=== PATIENT | male | born 1975 | race Caucasian/White ===

== ENCOUNTER → 2016-12-05 | Outpatient (CLI) | payer BC ==
[~2016-12-05] MED LIST: FLAX1CAP11 PO; METR-163 PO; VITAMIN B12 PO; VITAMIN D PO
[2016-12-05 13:31] LABS: ESTIMATED AVERAGE GLUCOSE 140 mg/dl; HA1C FLAG Normal (Normal)
[2016-12-05 13:35] LABS: BLOOD UREA NITROGEN 11 mg/dl (7-18); BUN/CREATININE RATIO 13.7 (10-20); CALCIUM 9.4 mg/dl (8.5-10.1); CARBON DIOXIDE 25 mmol/L (21-32); CHLORIDE 104 mmol/L (98-107); CREATININE 0.81 mg/dl (0.60-1.40); GLUCOSE 131 mg/dl (70-99); POTASSIUM 4.1 mmol/L (3.5-5.1); SODIUM 139 mmol/L (136-145); TRIGLYCERIDES 179 mg/dl (0-150)
== END | disposition home or self-care (01) ==
LOC: C.LABBC 10:49
PROVIDERS: ATTEND Nurse Practitioner Family
DX: E88.9 Metabolic disorder, unspecified (principal); E55.9 Vitamin D deficiency, unspecified

== ENCOUNTER → 2017-06-02 | Outpatient (CLI) | payer BC ==
[2017-06-02 10:44] LABS: BASO % 0.2 %; BASO ABS # 0.02 K/uL (0-0.2); COMPLETE YES; EOS % 2.5 %; HEMATOCRIT 40.9 % (42-52); IG% 0.4 %; LYMPH ABS # 2.78 K/uL (1.2-3.4); MEAN CELL VOLUME 93.2 fL (80-100); MEAN CORPUSCULAR HEMOGLOBIN 31.2 pg (25-34); MEAN CORPUSCULAR HGB CONC 33.5 g/dl (32-36); MEAN PLATELET VOLUME 10.8 fL (7.4-10.4); MONO % 7.9 %; PLATELET COUNT 249 K/uL (130-400); RED BLOOD COUNT 4.39 M/uL (4.7-6.1); WHITE BLOOD COUNT 9.26 K/uL (4.8-10.8)
[2017-06-02 11:17] LABS: ALB/GLOB RATIO 0.6 (0.9-2); ALKALINE PHOSPHATASE 92 U/L (45-117); ALT/SGPT 78 U/L (12-78); AST/SGOT 63 U/L (15-37); BLOOD UREA NITROGEN 13 mg/dl (7-18); BUN/CREATININE RATIO 15.2 (10-20); CARBON DIOXIDE 27 mmol/L (21-32); CHLORIDE 101 mmol/L (98-107); CHOLESTEROL 148 mg/dl (0-200); CHOLESTEROL/HDL RATIO 4.6; CREATININE 0.88 mg/dl (0.60-1.40); GLUCOSE 160 mg/dl (70-99); HDL CHOLESTEROL 32 mg/dl; LDL CHOLESTEROL CALCULATED 73 mg/dl; POTASSIUM 4.3 mmol/L (3.5-5.1); SODIUM 135 mmol/L (136-145); TRIGLYCERIDES 213 mg/dl (0-150); VERY LOW DENSITY LIPOPROT CALC 43 mg/dl
[2017-06-02 11:29] LABS: ESTIMATED AVERAGE GLUCOSE 148 mg/dl; HA1C FLAG Normal (Normal)
[2017-06-02 11:33] LABS: RATIO 12.6 mcg/mg (0-30.0)
== END | disposition home or self-care (01) ==
LOC: C.LABBC 07:53
PROVIDERS: ATTEND Family Medicine
DX: E88.9 Metabolic disorder, unspecified (principal); E11.9 Type 2 diabetes mellitus without complications; E55.9 Vitamin D deficiency, unspecified; Z85.71 Personal history of Hodgkin lymphoma

== ENCOUNTER → 2017-11-26 | Outpatient (CLI) | payer OTHER ==
--- NOTE | 2017-11-26 09:38 | DIAGNOSTIC IMAGING REPORT ---
CHEST 2 VIEWS ROUTINE CLINICAL HISTORY: R05 dyspnea. Cough. COMPARISON STUDY: No previous studies for comparison. FINDINGS: The bones soft tissues and hemidiaphragms are normal. The cardiomediastinal silhouette is normal. The lungs are clear. The pulmonary vasculature is normal. IMPRESSION: Negative chest. The above report was generated using voice recognition software. It may contain grammatical, syntax or spelling errors. Electronically signed by: Kana Urena M.D. 11/26/2017 9:36 AM Dictated Date/Time: 11/26/2017 9:36 AM
== END | disposition home or self-care (01) ==
LOC: C.RADBC 09:16
PROVIDERS: ATTEND Nurse Practitioner Family
DX: R05 Cough (principal)

== ENCOUNTER 2021-06-02 19:09 | Observation (INO) ==
[2021-06-02] MEDS ORDERED: SODIUM CHLORIDE 0.9% 1000ML 500 ML IV ONE (19:40)
[2021-06-02] MEDS ORDERED: dilTIAZem HCl 5 MG/ML 5 ML VIAL IV STA ×2 (19:40→20:35)
--- NOTE | 2021-06-02 19:50 | Emergency Department Note ---
Impression & Plan Atrial fibrillation with rapid ventricular response, Heart palpitations, Abnormal chest x-ray, Hypomagnesemia ED Provider Note NAME: COLETTE QUIÑONES AGE: 46 SEX: M : 1975 ARRIVES VIA: Walk-In INFORMANT: Patient, ED PROVIDER(S): Sukhdev Crabtree DO CHIEF COMPLAINT: Palpitations HPI: The patient is a 46-year-old male who presented to the emergency department for an evaluation of palpitations. The patient noticed palpitations earlier today. He was just finishing eating when he started noticing his heart was racing and skipping beats. He has never had similar symptoms in the past. He notices symptoms were somewhat worsened with exertion. He denies having any lower extremity swelling. He denies having any chest pain. He denies having any difficulty breathing. He has noticed no weight gain or abdominal pain. He said no recent traveling. He has no fever. He has had no exposure to COVID-19. His mother has a history of atrial fibrillation and he is unsure if he has the same. He has never had a history of atrial fibrillation. He does have a history of high triglycerides as well as diabetes. He is noticed his blood sugars have been normal compared to baseline. He has been taking all his medications as prescribed. ROS: See above HPI for pertinent positives & negatives. A total of 10 systems reviewed and were otherwise negative. PAST MEDICAL HISTORY: See Below PAST SURGICAL HISTORY: See Below FAMILY HISTORY: See Below SOCIAL HISTORY: See Below HOME MEDICATIONS: See Below ALLERGIES: See Below VITALS: See Below PHYSICAL EXAMINATION: GENERAL: Patient is awake alert in no acute distress patient is resting comfortably and showing no signs of anxiety EYES: The conjunctivae are clear. The pupils are round and reactive. EARS, NOSE, MOUTH AND THROAT: The nose is without any evidence of any deformity. NECK: The neck is nontender and supple. RESPIRATORY: Normal respiratory effort is noted there is no evidence of wheezing rhonchi or rales CARDIOVASCULAR: Tachycardic and irregular heart sounds were noted to auscultation. There is no definite murmur. GASTROINTESTINAL: The abdomen is soft. Abdomen is nontender. PELVIS: The Pelvis is stable. No tenderness to palpation is noted. BACK: No midline tenderness or or step-off noted range of motion in flexion extension as well as rotation no signs of muscle spasm noted MUSCULOSKELETAL/EXTREMITIES: There is no evidence of gross deformity full range of motion is noted in the hips and shoulders. SKIN: Skin is warm and dry. Trace pedal edema was noted bilaterally. NEUROLOGIC: Patient is awake alert and oriented x3. MEDICAL DECISION MAKING: The patient is a 39-male who presented to the emergency department for an evaluation of palpitations. The patient was found to be in rapid atrial fibrillation. He was treated with IV fluids as well as IV Cardizem multiple ti mes. The patient was reevaluated multiple times. His condition slowly improved. The patient was found to have an abnormal chest x-ray which led to a CT of the chest. No definite signs of aortic pathology were noted. I [facility] the [facility] have agreed to evaluate the patient in the emergency department for further management and disposition. Anticoagulation was deferred to the admitting team. Triage Nursing notes reviewed. Prior medical records reviewed Vital Signs: reviewed and remarkable for tachycardia Differential diagnosis: Premature contractions, electrolyte abnormality, cardiac dysrhythmia, thyroid dysfunction, pulmonary embolism, infection, gastrointestinal, as well as other pathologies. ER treatment provided: See below Diagnostics interpreted by me: ECG: EKG was obtained in the emergency department. My interpretation is atrial fibrillation at [address] segment abnormalities were noted. There was no PVCs. This was compared to a tracing from October 252020. Atrial fibrillation has replaced normal sinus rhythm. Cardiac Monitoring: An order was placed for continuous cardiac monitoring. The monitor shows a rate of 86 bpm with atrial fibrillation rhythm. Laboratory studies: As stated above and show below. Imaging studies: See below Consultation(s): I discussed this case with Dr. Ernandez who [facility] He will evaluate the patient in the emergency department for further management and disposition. ED COURSE: Procedures: none PDMP:reviewed and no issues Critical Care: I have personally spent greater than 45 minutes of critical care time in the direct management of this patient. This includes bedside care, interpretation of diagnostic studies, and testing, discussion with consultants, patient, and family members, and other required patient management activities. This 45 minutes is in excess of all separately billable procedures. Past Med/Surg History Medical History BMI 40.0-44.9, adult COVID-19 Diabetes mellitus type 2 in obese History of Hodgkin's lymphoma Hyperlipidemia Metabolic disorder Morbid obesity Pneumonia due to COVID-19 virus Sarcoidosis Surgical History History of colonoscopy History of lymph node biopsy History of surgery gallbladder surgery History of umbilical hernia repair Family History Family/Other Myocardial infarction Father Cardiac disorder Sister Anxiety Diabetes Denies family history of Ovarian cancer Prostate cancer Breast cancer Colorectal cancer Social History Smoking Status: Current some day smoker Tobacco Type: Cigarettes Age Started Using Tobacco: 15; Age Quit Using Tobacco: 17; Years Smoked: 2; Cigarettes Per Day: 2; Second Hand Exposure: No; Hx Alcohol Use: Yes Alcohol type: beer Alcohol Intake Frequency: Monthly or Les s Hx Substance Use: No Preferred Language: Japanese Communication Ability: Effective Visual Impairment: No Limitations Hearing Ability: Normal marital status: Current Living Situation: Spouse current occupational status: employed current occupation: [employer] Feels Safe at Home: Yes Childhood Exposure to Second-Hand Smoke: Yes Dental Care, Regularly: Yes Physical Activity Frequency: 1-2 Times per Week Seatbelt Use: always Sunscreen Use: Yes Allergies Allergies Allergy/AdvReac Type Severity Reaction Status Date / Time cetirizine Allergy Unknown RASH Verified 06/02/21 20:16 Home Meds Home Medications Medication Instructions Recorded Confirmed omega-3 fatty acids 1,000 mg 1,000 mg PO QAM 03/13/19 06/02/21 capsule (Fish Oil Concentrate) cholecalciferol (vitamin D3) 125 5,000 units PO QAM #30 cap 04/28/19 06/02/21 mcg (5,000 unit) capsule cyanocobalamin (vitamin B-12) 1,000 mcg PO QAM tab 04/28/19 06/02/21 1,000 mcg tablet blood-glucose meter (Accu-Chek ea 04/22/21 04/22/21 Maral Plus Meter) dulaglutide 3 mg/0.5 mL 3 mg SQ Q7D ml 04/22/21 06/02/21 subcutaneous pen injector albuterol sulfate 90 mcg/actuation 1 - 2 puff INHALATION Q4H PRN 06/02/21 06/02/21 aerosol inhaler insulin aspart U-100 100 unit/mL 60 unit SQ DIRECTED 06/02/21 06/02/21 (3 mL) subcutaneous pen (Novolog Flexpen U-100 Insulin aspart) insulin degludec 100 unit/mL (3 40 unit SQ QAM 06/02/21 06/02/21 mL) subcutaneous pen (Tresiba FlexTouch U-100 insulin) rosuvastatin 10 mg tablet (Crestor) 10 mg PO QAM 06/02/21 06/02/21 Previous Rx's Medication Instructions Recorded Dexcom G6 Remote Inpatient Coder (blood-glucose #1 ea NS 10/03/20 meter,continuous) BD Ultra-Fine Tatyana Pen Needle 32 #200 ea NS 01/30/21 gauge x 5/32" (pen needle, diabetic) Dexcom G6 Sensor (blood-glucose #3 ea NS 03/05/21 sensor) Dexcom G6 Transmitter #1 ea NS 03/05/21 (blood-glucose transmitter) blood sugar diagnostic (Accu-Chek #100 ea 04/22/21 Maral Plus test strp) metformin 500 mg tablet 1,000 mg PO BID #360 tab 05/12/21 Results & Data (ED) Vital Signs Vital Signs - 24 hr 06/02/21 19:17 06/02/21 19:41 06/02/21 20:00 Temperature 36.9 C Temperature Source Temporal Artery Scan Pulse Rate 140 H 155 H 127 H Pulse Rate [Apical] Pulse Rate from SpO2 Sensor 108 H Respiratory Rate 19 17 18 Respiratory Effort / Characteristics Non-Labored Respiratory Depth Normal Respiratory Pattern Regular Blood Pressure 129/77 126/104 H 143/83 H Blood Pressure [Left Arm] Blood Pressure Mean 94 111 103 Blood Pressure Mean [Left Arm] Pulse Oximetry 98 95 Oxygen Delivery Method Room Air Sepsis Recent Fever Within 48 Hours No Sepsis New/Unexplained Change in Mental Status N/A Sepsis Action Taken by Nursing No Action Required 06/02/21 20:30 06/02/21 21:00 06/02/21 21:30 Temperature Temperature Source Pulse Rate 130 H 108 H 130 H Pulse Rate [Apical] Pulse Rate from SpO2 Sensor 128 H 89 120 H Respiratory Rate 19 19 16 Respiratory Effort / Characteristics Respiratory Depth Respiratory Pattern Blood Pressure 134/71 126/78 132/79 Blood Pressure [Left Arm] Blood Pressure Mean 92 94 96 Blood Pressure Mean [Left Arm] Pulse Oximetry 93 94 96 Oxygen Delivery Method Sepsis Recent Fever Within 48 Hours Sepsis New/Unexplained Change in Mental Status Sepsis Action Taken by Nursing 06/02/21 22:00 06/02/21 22:36 06/02/21 23:00 Temperature Temperature Source Pulse Rate 96 H 93 H Pulse Rate [Apical] 93 H Pulse Rate from SpO2 Sensor 96 H 95 H Respiratory Rate 17 14 Respiratory Effort / Characteristics Respiratory Depth Respiratory Pattern Blood Pressure 113/72 111/76 Blood Pressure [Left Arm] Blood Pressure Mean 85 87 Blood Pressure Mean [Left Arm] Pulse Oximetry 96 96 Oxygen Delivery Method Sepsis Recent Fever Within 48 Hours Sepsis New/Unexplained Change in Mental Status Sepsis Action Taken by Nursing 06/02/21 23:30 06/02/21 23:51 Temperature Temperature Source Pulse Rate 88 Pulse Rate [Apical] 86 Pulse Rate from SpO2 Sensor 88 Respiratory Rate 17 Respiratory Effort / Characteristics Respiratory Depth Respiratory Pattern Blood Pressure 116/71 Blood Pressure [Left Arm] 109/68 Blood Pressure Mean 86 Blood Pressure Mean [Left Arm] 81 Pulse Oximetry 95 96 Oxygen Delivery Method Room Air Sepsis Recent Fever Within 48 Hours Sepsis New/Unexplained Change in Mental Status Sepsis Action Taken by Half-Way Medications Current Medication List: was personally reviewed by me Laboratory Data Attestation: I reviewed the patient's lab results. Result diagrams: 06/02/21 19:34 06/02/21 19:34 Lab Results 06/02/21 06/02/21 06/02/21 Range/Units 19:34 19:34 19:34 WBC 8.66 (4.8-10.8) K/uL RBC 4.38 L (4.7-6.1) M/uL Hgb 13.0 L (14.0-18.0) g/dL Hct 38.2 L (42-52) % MCV 87.2 (80-100) fL MCH 29.7 (25-34) pg MCHC 34.0 (32-36) g/dL RDW Std Deviation 49.0 H (36.4-46.3) fL RDW Coeff of Chin 15.5 H (11.5-14.5) % Plt Count 204 (130-400) K/uL MPV 9.7 (7.4-10.4) fL Immature Gran % (Auto) 0.3 % Neut % (Auto) 64.6 % Lymph % (Auto) 23.4 % [place] % (Auto) 8.2 % Eos % (Auto) 3.2 % Baso % (Auto) 0.3 % Neut # (Auto) 5.58 (1.4-6.5) K/uL Lymph # (Auto) 2.03 (1.2-3.4) K/uL [place] # (Auto) 0.71 H (0.11-0.59) K/uL Eos # (Auto) 0.28 (0-0.5) K/uL Baso # (Auto) 0.03 (0-0.2) K/uL Immature Gran # (Auto) 0.03 H (0.00-0.02) K/uL PT 10.1 (9.0-12.0) Seconds INR 1.0 (0.9-1.1) APTT 26.1 (21.0-31.0) Seconds PTT Ratio 1.0 Sodium 137 (136-145) mmol/L Potassium 3.8 (3.5-5.1) mmol/L Chloride 106 (98-107) mmol/L Carbon Dioxide 24 (21-32) mmol/L Anion Gap 7.0 (3-11) BUN 14 (7-18) mg/dl Creatinine 0.86 (0.6-1.4) mg/dl Est Cr Clr Drug Dosing 148.1 ml/min Est GFR ( Amer) 119.7 ml/min Est GFR (Non-Af Amer) 103.3 ml/min BUN/Creatinine Ratio 16.8 (10-20) Glucose 174 H (70-99) mg/dl Calcium 9.1 (8.5-10.1) mg/dl Magnesium 1.6 L (1.8-2.4) mg/dl Total Bilirubin 1.0 (0.2-1) mg/dl AST 50 H (15-37) U/L ALT 58 (12-78) U/L Alkaline Phosphatase 118 H (45-117) U/L Troponin I < 0.015 (0-0.045) ng/ml Total Protein 8.6 H (6.4-8.2) gm/dl Albumin 3.5 (3.4-5.0) gm/dl Globulin 5.1 H (2.5-4.0) gm/dl Albumin/Globulin Ratio 0.7 L (0.9-2) TSH 3.040 (0.300-4.500) uIu/ml COVID-19 Eval Order SARS-CoV-2 (PCR) (Negative) 06/02/21 06/02/21 Range/Units 19:43 19:43 WBC (4.8-10.8) K/uL RBC (4.7-6.1) M/uL Hgb (14.0-18.0) g/dL Hct (42-52) % MCV (80-100) fL MCH (25-34) pg MCHC (32-36) g/dL RDW Std Deviation (36.4-46.3) fL RDW Coeff of Chin (11.5-14.5) % Plt Count (130-400) K/uL MPV (7.4-10.4) fL Immature Gran % (Auto) % Neut % (Auto) % Lymph % (Auto) % [place] % (Auto) % Eos % (Auto) % Baso % (Auto) % Neut # (Auto) (1.4-6.5) K/uL Lymph # (Auto) (1.2-3.4) K/uL [place] # (Auto) (0.11-0.59) K/uL Eos # (Auto) (0-0.5) K/uL Baso # (Auto) (0-0.2) K/uL Immature Gran # (Auto) (0.00-0.02) K/uL PT (9.0-12.0) Seconds INR (0.9-1.1) APTT (21.0-31.0) Seconds PTT Ratio Sodium (136-145) mmol/L Potassium (3.5-5.1) mmol/L Chloride (98-107) mmol/L Carbon Dioxide (21-32) mmol/L Anion Gap (3-11) BUN (7-18) mg/dl Creatinine (0.6-1.4) mg/dl Est Cr Clr Drug Dosing ml/min Est GFR ( Amer) ml/min Est GFR (Non-Af Amer) ml/min BUN/Creatinine Ratio (10-20) Glucose (70-99) mg/dl Calcium (8.5-10.1) mg/dl Magnesium (1.8-2.4) mg/dl Total Bilirubin (0.2-1) mg/dl AST (15-37) U/L ALT (12-78) U/L Alkaline Phosphatase (45-117) U/L Troponin I (0-0.045) ng/ml Total Protein (6.4-8.2) gm/dl Albumin (3.4-5.0) gm/dl Globulin (2.5-4.0) gm/dl Albumin/Globulin Ratio (0.9-2) TSH (0.300-4.500) uIu/ml COVID-19 Eval Order Covid19 at [facility] SARS-CoV-2 (PCR) NEGATIVE (Negative) Administered Medications Discontinued Medications Diltiazem HCl (Diltiazem Hcl 5 Mg/Ml 5 Ml Vial) 20 mg IV NOW STA Stop: 06/02/21 19:41 Last Admin: 06/02/21 19:44 Dose: 20 mg Documented by: [id number] Cosigned by: [id number] Diltiazem HCl (Diltiazem Hcl 5 Mg/Ml 5 Ml Vial) 20 mg IV NOW STA Stop: 06/02/21 20:36 Last Admin: 06/02/21 20:41 Dose: 20 mg Documented by: [id number] Cosigned by: [id number] Sodium Chloride (Nss 1000ml) 500 mls @ 999 mls/hr IV .Q31M ONE Stop: 06/02/21 20:10 Last Infusion: 06/02/21 20:30 Dose: 0 mls/hr Documented by: [id number] Admin: 06/02/21 19:50 Dose: 999 mls/hr Documented by: [id number] Magnesium Sulfate/Dextrose (Magnesium Sulfate / D5w) 1 gm in 100 mls @ 100 mls/hr IV Q1H DEBBIE Stop: 06/02/21 23:22 Last Infusion: 06/02/21 23:49 Dose: 0 mls/hr Documented by: [id number] Admin: 06/02/21 22:33 Dose: 100 mls/hr Documented by: [id number] Infusion: 06/02/21 22:33 Dose: 100 mls/hr Documented by: [id number] Admin: 06/02/21 21:45 Dose: 100 mls/hr Documented by: [id number] Potassium Chloride (K Patrick / Wtr) 10 meq in 100 mls @ 100 mls/hr IV Q1H DEBBIE Stop: 06/02/21 23:29 Last Infusion: 06/02/21 23:49 Dose: 0 mls/hr Documented by: [id number] Admin: 06/02/21 22:35 Dose: 100 mls/hr Documented by: [id number] Infusion: 06/02/21 22:33 Dose: 100 mls/hr Documented by: [id number] Admin: 06/02/21 21:33 Dose: 100 mls/hr Documented by: [id number] Ioversol (Optiray 320 125ml) 120 ml IV ONCE ONE Stop: 06/02/21 21:07 Last Admin: 06/02/21 21:06 Dose: 120 ml Documented by: [id number] Imaging Data Radiologist's Impression: Chest X-Ray 06/02/21 19:20 XR chest 1V portable CLINICAL HISTORY: Chest Pain COMPARISON STUDY: November 19, 2020 FINDINGS: No pneumothorax. No pleural effusion. No large infiltrates or consolidative lesions are seen. Lung volumes are decreased with crowded lung markings. Cardiomediastinal silhouette is moderately enlarged. Mild interval prominence of midportion of the mediastinal shadow could be due to prominent aortic arch versus other etiology. No significant pulmonary vascular congestion.. Osseous structures: unremarkable IMPRESSION: 1. No large infiltrates or consolidative lesions. Low lung volumes. 2. Moderate to large cardiomediastinal silhouette. Interval prominence of midportion of mediastinum which could be due to tortuous aorta versus other etiology. Further evaluation with CT of the chest is recommended. Findings will be sent to emergency Department. ACT 112: Negative or not required by law. The above report was generated using voice recognition software. It may contain grammatical, syntax or spelling errors. Electronically signed by: Shawnee Maria DO 06/02/2021 8:27 PM Patient: COLETTE QUIÑONES (Male) : 73 Status: ER Date: 06/02/21 21:15 Room #: History: abn cxr Slices: [id number] Priors: Tech: Dominic Pinon @ [phone] Exams: CTA CHEST Contrast: IV Amt: 120 Accession Numbers: [id number] Referring Physician: REFERRED SELF Preliminary Findings Only See Final Report For Complete Findings CTA CHEST: Impression: No pulmonary embolism. No evidence of aortic dissection or thoracic aortic aneurysm. Incidental findings: Anterior mediastinal calcifications as well as calcifications along the posterior margin of the thyroid gland. Findings could represent partially calcified lymph nodes. Clinical correlation recommended. Gynecomastia bilaterally. Hepatic steatosis. Cholecystectomy. Multilevel mild anterior wedge deformity with associated Schmorl's nodes and focal kyphosis of the lower thoracic spine suggestive of Scheuermann's disease. Radiologist: Malik Fermin MD Study ready at 21:20 and initial results transmitted at 21:33 Discharge Plan Visit Data Chief Complaint: Cardiac Assessment Stated Complaint: HEART FLUTTER DOES NOT FEEL RIGHT ED Provider: Sukhdev Crabtree Discharge Problem: Atrial fibrillation with rapid ventricular response, Heart palpitations, Abnormal chest x-ray, Hypomagnesemia Patient Disposition: Admitted As Inpatient Discharge Instructions Interventions: ED Discharge Assessment Last Done: 06/03/21 00:01 Forms Stand Alone Forms: Press-sense Prescriptions Prescriptions: No Action (DME) Dexcom G6 Remote Inpatient Coder Misc See Rx Instructions .ROUTE .MEDSUPPLY Qty: 1 RF: 0 (DME) pen needle, diabetic [BD Ultra-Fine Tatyana Pen Needle] 32 gauge x 5/32" needle See Rx Instructions .ROUTE .MEDSUPPLY Qty: 200 RF: 3 (DME) Dexcom G6 Sensor Device See Rx Instructions .ROUTE .MEDSUPPLY Qty: 3 RF: 11 (DME) Dexcom G6 Transmitter Device See Rx Instructions .ROUTE .MEDSUPPLY Qty: 1 RF: 3 metformin 500 mg tablet 1,000 mg PO BID Qty: 360 RF: 1 omega-3 fatty acids [Fish Oil Concentrate] 1,000 mg capsule 1,000 mg PO QAM RF: 0 cholecalciferol (vitamin D3) 5,000 unit capsule 5,000 units PO QAM Qty: 30 RF: 0 cyanocobalamin (vitamin B-12) 1,000 mcg tablet 1,000 mcg PO QAM RF: 0 dulaglutide 3 mg/0.5 mL pen injector 3 mg SQ Q7D RF: 0 (DME) Accu-Chek Maral Plus test strp Strip See Rx Instructions .ROUTE .MEDSUPPLY Qty: 100 RF: 1 (DME) blood-glucose meter [Accu-Chek Maral Plus Meter] Misc See Rx Instructions .ROUTE .MEDSUPPLY RF: 0 albuterol sulfate 90 mcg/actuation HFA aerosol inhaler 1 - 2 puff inhalation Q4H PRN (Reason: shortness of breath or wheezing) RF: 0 insulin aspart U-100 [Novolog Flexpen U-100 Insulin] 100 unit/mL (3 mL) insulin pen 60 unit SQ DIRECTED RF: 0 rosuvastatin [Crestor] 10 mg tablet 10 mg PO QAM RF: 0 Tresiba FlexTouch U-100 100 unit/mL (3 mL) insulin pen 40 unit SQ QAM RF: 0 Referrals Referrals: Charlie Peterson III, CRNP [Primary Care Provider] -
[2021-06-02 19:53] LABS: Basophils # (auto) 0.03 K/uL (0-0.2); Basophils % (auto) 0.3 %; Eosinophils # (auto) 0.28 K/uL (0-0.5); Eosinophils % (auto) 3.2 %; Hematocrit (blood only) 38.2 % (42-52); Immature Granulocytes # (auto) 0.03 K/uL (0.00-0.02); Immature Granulocytes % (auto) 0.3 %; Lymphocytes # (auto) 2.03 K/uL (1.2-3.4); Lymphocytes % (auto) 23.4 %; Mean Corpuscular Hemoglobin 29.7 pg (25-34); Mean Corpuscular Volume 87.2 fL (80-100); Mean Platelet Volume 9.7 fL (7.4-10.4); Monocytes # (auto) 0.71 K/uL (0.11-0.59); Monocytes % (auto) 8.2 %; Neutrophils # (auto) 5.58 K/uL (1.4-6.5); Neutrophils % (auto) 64.6 %; Platelet Count 204 K/uL (130-400); RDW Coefficient of Variation 15.5 % (11.5-14.5); Red Blood Count 4.38 M/uL (4.7-6.1); White Blood Count 8.66 K/uL (4.8-10.8)
[2021-06-02 20:04] LABS: Partial Thromboplastin Time 26.1 Seconds (21.0-31.0); Prothrombin Time 10.1 Seconds (9.0-12.0)
[2021-06-02 20:14] LABS: Alanine Aminotransferase 58 U/L (12-78); Albumin Level 3.5 gm/dl (3.4-5.0); Aspartate Aminotransferase 50 U/L (15-37); BUN Creatinine Ratio 16.8 (10-20); Blood Urea Nitrogen 14 mg/dl (7-18); Calcium 9.1 mg/dl (8.5-10.1); Carbon Dioxide 24 mmol/L (21-32); Chloride 106 mmol/L (98-107); Creatinine Clr Calc Pharmacy 148.1 ml/min; Est GFR (African American) 119.7 ml/min; Est GFR (Non-African American) 103.3 ml/min; Glucose 174 mg/dl (70-99); Magnesium 1.6 mg/dl (1.8-2.4); Potassium 3.8 mmol/L (3.5-5.1); Sodium 137 mmol/L (136-145)
[2021-06-02 20:25] LABS: Albumin Globulin Ratio 0.7 (0.9-2); Alkaline Phosphatase 118 U/L (45-117); Globulin 5.1 gm/dl (2.5-4.0); Total Protein 8.6 gm/dl (6.4-8.2); Troponin I < 0.015 ng/ml (0-0.045)
--- NOTE | 2021-06-02 20:29 | XRay Report ---
XR chest 1V portable CLINICAL HISTORY: Chest Pain COMPARISON STUDY: November 19, 2020 FINDINGS: No pneumothorax. No pleural effusion. No large infiltrates or consolidative lesions are seen. Lung volumes are decreased with crowded lung markings. Cardiomediastinal silhouette is moderately enlarged. Mild interval prominence of midportion of the me diastinal shadow could be due to prominent aortic arch versus other etiology. No significant pulmonary vascular congestion.. Osseous structures: unremarkable IMPRESSION: 1. No large infiltrates or consolidative lesions. Low lung volumes. 2. Moderate to large cardiomediastinal silhouette. Interval prominence of midportion of mediastinum which could be due to tortuous aorta versus other etiology. Further evaluation with CT of the chest i s recommended. Findings will be sent to emergency Department. ACT 112: Negative or not required by law. The above report was generated using voice recognition software. It may contain grammatical, syntax o r spelling errors. Electronically signed by: Shawnee Maria DO 06/02/2021 8:27 PM
[2021-06-02] MEDS ORDERED: OPTIRAY 320 125ml IV ONE (21:06)
[2021-06-02] MEDS: POTASSIUM CHLORIDE / WTR 10 MEQ/100 ML PLCT IV SCH ×2 (21:33→22:35)
[2021-06-02] MEDS: MAGNESIUM SULFATE / D5W 1 GM/100 ML BAG IV SCH ×2 (21:45→22:33)
--- NOTE | 2021-06-02 22:05 | History & Physical Report ---
Date of Service June 02, 2021 Assessment & Plan (1) Atrial fibrillation: Plan: 46 yo M w/ pMHx. of metabolic disorder with BMI > 40, IDDM II last A1C 6.5, Sarcoid, Hodgkins dx. 2000 s/p chemo, HLD and COVID infection in September presenting with palpitations found to be in atrial fibrillation with rapid ventricular rate Atrial fibrillation w/ RVR - symptomatic (palpitations, diaphoresis) - rate initially 150's Risk factor for developing atrial fibrillation include obesity, and inciting factor could be dehydration with recent GI illness, poor oral intake and subsequent electrolyte abnormalities although we will want to further evaluate for structural causes including valvular disorders, cardiomyopathy or potentially heart failure as the precipitating factor Troponin nl., TSH nl. [id number] score 1 for DM - converted to NSR in the ER after Diltiazem 20 mg IVP X2 - TTE ordered to evaluate for precipitating factors and to evaluate the left atrial size - consulted cardiology given new onset of atrial fibrillation IDDM - held oral agents - started SSI - 15 U bid long acting HLD - continue Rosuvastatin Code: Full Diet: carb consitent DVT: Lovenox (2) Metabolic disorder: (3) Sarcoidosis: (4) History of Hodgkin's lymphoma: (5) BMI 40.0-44.9, adult: (6) Hyperlipidemia: History of Present Illness Chief Complaint: Palpitations Primary Care Provider: Charlie Peterson, III, JUICE Cain Driscoll is a 46-year-old male with a past history of metabolic syndrome, obesity, DM II (A1c 6.5 11/07), Hodgkin lymphoma Dx. 2000 s/p chemotherapy, Sarcoid, and HLD presenting today with palpitations found to be in atrial fibrillation with rapid ventricular rate. He noted fluttering in his chest on 06/02 along with sweating. He did not have any chest pain or shortness of breath. He has never had anything like this in the past. He has had diarrhea, gas and indigestion over the last 2 days that has been improving. He typically does not drink much water during the day stating that he drinks around 32 oz. of water, 12 of tea and 12 of decaf. coffee. His was sick prior also with diarrhea and has recovered over approx. one day. Of note, he had COVID in September (ED visit 01/19) and the patient reports there was concern for an enlarged heart at that time on imaging (cardiomegaly on CXR). Tereza would like to be updated with any changes: [phone] ED course: - Diltiazem IV 20mg X2 & converted to NSR Allergies Allergy/AdvReac Type Severity Reaction Status Date / Time cetirizine Allergy Unknown RASH Verified 06/02/21 20:16 Home Medications Medication Instructions Recorded Confirmed Type omega-3 fatty acids 1,000 mg 1,000 mg PO QAM 03/13/19 06/02/21 History capsule (Fish Oil Concentrate) cholecalciferol (vitamin D3) 125 5,000 units PO QAM #30 cap 04/28/19 06/02/21 History mcg (5,000 unit) capsule cyanocobalamin (vitamin B-12) 1,000 mcg PO QAM tab 04/28/19 06/02/21 History 1,000 mcg tablet Dexcom G6 Director Telecommunications (blood-glucose #1 ea NS 10/03/20 04/22/21 Rx meter,continuous) BD Ultra-Fine Tatyana Pen Needle 32 #200 ea NS 01/30/21 04/22/21 Rx gauge x 5/32" (pen needle, diabetic) Dexcom G6 Sensor (blood-glucose #3 ea NS 03/05/21 04/22/21 Rx sensor) Dexcom G6 Transmitter #1 ea NS 03/05/21 04/22/21 Rx (blood-glucose transmitter) blood sugar diagnostic (Accu-Chek #100 ea 04/22/21 04/22/21 Rx Maral Plus test strp) blood-glucose meter (Accu-Chek ea 04/22/21 04/22/21 History Maral Plus Meter) dulaglutide 3 mg/0.5 mL 3 mg SQ Q7D ml 04/22/21 06/02/21 History subcutaneous pen injector metformin 500 mg tablet 1,000 mg PO BID #360 tab 05/12/21 06/02/21 Rx albuterol sulfate 90 mcg/actuation 1 - 2 puff INHALATION Q4H PRN 06/02/21 06/02/21 History aerosol inhaler insulin aspart U-100 100 unit/mL 60 unit SQ DIRECTED 06/02/21 06/02/21 History (3 mL) subcutaneous pen (Novolog Flexpen U-100 Insulin aspart) insulin degludec 100 unit/mL (3 40 unit SQ QAM 06/02/21 06/02/21 History mL) subcutaneous pen (Tresiba FlexTouch U-100 insulin) rosuvastatin 10 mg tablet (Crestor) 10 mg PO QAM 06/02/21 06/02/21 History aspirin 81 mg tablet,delayed 81 mg PO DAILY #30 tab 06/03/21 Rx release (Aspirin Low Dose) metoprolol succinate 25 mg 25 mg PO QAM #30 tab 06/03/21 Rx tablet,extended release 24 hr Past Med/Surg History Medical History BMI 40.0-44.9, adult COVID-19 Diabetes mellitus type 2 in obese History of Hodgkin's lymphoma Hyperlipidemia Metabolic disorder Morbid obesity Pneumonia due to COVID-19 virus Sarcoidosis Surgical History History of colonoscopy History of lymph node biopsy History of surgery gallbladder surgery History of umbilical hernia repair Family History Family/Other Myocardial infarction Father Cardiac disorder Sister Anxiety Diabetes Denies family history of Ovarian cancer Prostate cancer Breast cancer Colorectal cancer Social History Smoking Status: Current some day smoker Tobacco Type: Cigarettes Age Started Using Tobacco: 15; Age Quit Using Tobacco: 17; Years Smoked: 2; Cigarettes Per Day: socially; Second Hand Exposure: No; Hx Alcohol Use: Yes Alcohol type: beer Alcohol Intake Frequency: Monthly or Less Hx Substance Use: No Preferred Language: Montserratian Communication Ability: Effective Visual Impairment: No Limitations Hearing Ability: Normal marital status: Current Living Situation: Spouse Current Living Situation Comment: with current occupational status: 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 Feels Safe at Home: Yes Childhood Exposure to Second-Hand Smoke: Yes Dental Care, Regularly: Yes Physical Activity Frequency: 1-2 Times per Week Seatbelt Use: always Sunscreen Use: Yes Assistive Devices: None Review of Systems Review of Systems: Constitutional: denies fevers, chills, nausea, vomiting, fatigue, generalized weakness, night sweats, weight loss admits diaphoresis Head: denies trauma, LOC, headache, confusion, lightheadedness, vision changes Neurologic: denies syncope, slurring of speech, numbness, tingling ENT: denies rhinorrhea, stuffiness, sneezing, sore throat Cardiac: denies chest pain, palpitations, leg swelling admits palpitations Pulm.: denies cough, hemoptysis, sputum production GI: denies constipation, blood in stool admits diarrhea LBM 1PM : denies urgency, dysuria, hematuria Physical Exam Constitutional: WD/WN, vitals as above Eyes: PERRL, conjunctivae normal, anicteric sclerae ENMT: external ear and nose normal, oropharynx normal Neck: normal visual inspection Respiratory: normal respiratory effort, lungs clear to auscultation Cardiovascular: - slightly elevated HR with normal rhythm - 2+ pitting edema in the bilateral lower extremity Gastrointestinal (Abdomen): normal bowel sounds, soft, nontender, no hepatosplenomegaly Musculoskeletal: no cyanosis or clubbing, extremities motor strength 5/5 Skin: no rashes, warm and dry Neurologic: Speech / Cognition: normal speech Psychiatric: A+Ox3, euthymic affect Results & Data Results & Data ([facility]) Vital Signs (Past 12 Hours) Vital Signs Temp Pulse Resp BP Pulse Ox 06/02/21 21:00 108 H 19 126/78 94 06/02/21 20:30 130 H 19 134/71 93 06/02/21 20:00 127 H 18 143/83 H 95 06/02/21 19:41 155 H 17 126/104 H 06/02/21 19:17 36.9 C 140 H 19 129/77 98 CBC Results Results Complete Blood Count Results: RBC 4.28 M/uL (4.7-6.1) L 06/03/21 WBC 6.69 K/uL (4.8-10.8) 06/03/21 Hgb 12.5 g/dL (14.0-18.0) L 06/03/21 Hct 38.0 % (42-52) L 06/03/21 Plt Count 197 K/uL (130-400) 06/03/21 Chemistry (BMP) Results BMP Results: Sodium 137 mmol/L (136-145) 06/03/21 Potassium 4.0 mmol/L (3.5-5.1) 06/03/21 Chloride 107 mmol/L (98-107) 06/03/21 BUN 12 mg/dl (7-18) 06/03/21 Creatinine 0.75 mg/dl (0.6-1.4) 06/03/21 Glucose 179 mg/dl (70-99) H 06/03/21 Supervising Physician Co-Signing Physician Notes Attending addendum: I have physically seen this patient, have supervised the medical residents activities, and agree with the H&P unless as otherwise noted. Assessment and Plan: Atrial fibrillation with RVR- The patient will be admitted to telemetry for serial cardiac enzymes, serial EKG's, cardiac rhythm monitoring and a 2-D echocardiogram with Dopplers. Converted to normal sinus rhythm after given diltiazem 10 mg IV x2 in the ED Diltiazem 10 mg IV every 4 hours as needed heart rate greater than 110 Optimize potassium and magnesium with IV and oral supplementation Cardiology consult Diabetes mellitus- Hold oral agents, hold dulaglutide Placed on Accu-Cheks before meals and at bedtime with NovoLog coverage per scale Adjusted Tresiba dose Check hemoglobin A1c Remaining orders and notations as noted Resident Activity Tracking Resident Involvement: Resident Care Provided Care Provided: Adult Hospital Medicine
[2021-06-03] MEDS ORDERED: GLUCOSE 10 TABS/TUBE PO PRN (01:04)
[2021-06-03] MEDS ORDERED: POLYETHYLENE (MIRALAX) 17 GM PACK PO PRN (01:04)
[2021-06-03] MEDS ORDERED: ALBUTEROL HFA 8 GM INHALER INH PRN (01:04)
[2021-06-03] MEDS ORDERED: CARBOHYDRATES FOR HYPOGLYCEMIA PO PRN (01:04)
[2021-06-03] MEDS ORDERED: DEXTROSE 50% 50 ML SYRINGE IV PRN (01:04)
[2021-06-03] MEDS ORDERED: GLUCAGON FOR INJ 1 MG VIAL SQ PRN (01:04)
[2021-06-03] MEDS ORDERED: GLUCOSE 40% GEL 15 GM TUBE PO PRN (01:04)
[2021-06-03] MEDS ORDERED: ACETAMINOPHEN 325 MG TAB PO PRN (01:04)
[2021-06-03] MEDS ORDERED: SODIUM CHLORIDE 0.9% 1000ML 1,000 ML IV SCH (01:15)
[2021-06-03] MEDS: ENOXAPARIN INJ 40 MG/0.4 ML SYR SQ SCH ×2 (01:36→13:16)
[2021-06-03 07:45] LABS: Basophils # (auto) 0.02 K/uL (0-0.2); Basophils % (auto) 0.3 %; Eosinophils # (auto) 0.19 K/uL (0-0.5); Eosinophils % (auto) 2.8 %; Hemoglobin 12.5 g/dL (14.0-18.0); Immature Granulocytes # (auto) 0.01 K/uL (0.00-0.02); Immature Granulocytes % (auto) 0.1 %; Lymphocytes # (auto) 1.57 K/uL (1.2-3.4); Lymphocytes % (auto) 23.5 %; Mean Corpuscular Hemoglobin 29.2 pg (25-34); Mean Corpuscular Hgb Conc 32.9 g/dL (32-36); Mean Corpuscular Volume 88.8 fL (80-100); Mean Platelet Volume 9.6 fL (7.4-10.4); Monocytes # (auto) 0.54 K/uL (0.11-0.59); Monocytes % (auto) 8.1 %; Neutrophils # (auto) 4.36 K/uL (1.4-6.5); Neutrophils % (auto) 65.2 %; Platelet Count 197 K/uL (130-400); RDW Coefficient of Variation 15.7 % (11.5-14.5); RDW Standard Deviation 50.3 fL (36.4-46.3); Red Blood Count 4.28 M/uL (4.7-6.1); White Blood Count 6.69 K/uL (4.8-10.8)
[2021-06-03 08:03] LABS: BUN Creatinine Ratio 16.3 (10-20); Calcium 8.6 mg/dl (8.5-10.1); Creatinine Clr Calc Pharmacy 169.7 ml/min; Est GFR (African American) 126.6 ml/min; Est GFR (Non-African American) 109.2 ml/min; Magnesium 2.2 mg/dl (1.8-2.4)
[2021-06-03 08:05] LABS: Estimated Average Glucose 134 mg/dl; Hemoglobin A1C 6.3 % (4.5-5.6)
[2021-06-03] MEDS: INSULIN ASPART 100 UNITS/ML 3 ML PEN SC SCH ×2 (08:20→12:23)
--- NOTE | 2021-06-03 08:40 | CT Scan Report ---
CT ANGIOGRAM OF THE CHEST COMBO CLINICAL HISTORY: Palpitations COMPARISON STUDY: None TECHNIQUE: Before and following the IV administration of 120 cc of Optiray, CT angiogram of the chest was performed from the thoracic inlet to the upper abdomen utilizing the dissection protocol. Images are reviewed in the axial, sagittal, and coronal planes. 3-D MIPS images are created and assessed. I V contrast was administered without complication. A dose lowering technique was utilized adhering to the principles of ALARA. CT DOSE: 2231.24 mGy.cm FINDINGS: There is no axillary, supra clavicle or internal mammary lymphadenopathy seen. Multiple mediastinal l ymph nodes are seen measuring up to 1.1 cm in endotracheal region. Multiple calcifications are seen within anterior mediastinum and could represent calcified lymph node s. Thyroid: Imaged portions of the thyroid gland are normal in size and attenuation. Esophagus is normal. Thoracic aorta: The thoracic aorta is normal in caliber and demonstrates standard 3-vessel arch anato my. No dissection is seen. Pulmonary vasculature: Main pulmonary artery is dilated measuring up to 3.2 cm in diameter which coul d be seen in pulmonary hypertension. Heart: The heart is normal in size and configuration. No definite pericardial effusion is seen howeve r there is mild diffuse prominence of pericardium with few areas of minimal pericardial thickening me asuring up to 3 mm. Moderate coronary calcifications are seen. Lungs and pleural spaces: Tracheobronchial tree is patent. Right hemidiaphragm is elevated and associated with compressive atel ectasis of the right lower lobe. No large infiltrates or consolidative lesions are seen. No pleural effusion is demonstrated. No large pulmonary nodules visualized. Upper abdomen: Partially visualized upper abdominal viscera is within normal limits. Skeletal structures: No lytic or blastic bony lesions are seen. Multilevel degenerative changes of th e spine are seen and exaggerated thoracic kyphosis. Mild gynecomastia is seen bilaterally. IMPRESSION: 1. Few areas of focal pericardial thickening, multiple calcified anterior mediastinal lymph nodes an d lobulated contour of the right pulmonary artery associated with dilated main pulmonary artery. Diff erential diagnosis include pulmonary hypertension and fibrosing mediastinitis. Please correlate above -mentioned findings with prior history and clinical presentation. 2. No pericardial effusion seen. Moderate coronary calcifications, too prominent for patient's age g roup. Please correlate this findings with cardiology evaluation. 3. No infiltrates or consolidative lesions. Elevated right hemidiaphragm and compressive atelectasis at the right base. 4. The rest of findings as above. ACT 112: Positive. There are findings on this exam that require communication between the performing entity and the patient following Patient Test Result Information Act ([place] Act 112) guidelines. The above report was generated using voice recognition software. It may contain grammatical, syntax o r spelling errors. Electronically signed by: Shawnee Maria DO 06/03/2021 8:39 AM
[2021-06-03] MEDS ORDERED: ROSUVASTATIN CALCIUM 10 MG TAB PO SCH (09:00)
[2021-06-03] MEDS ORDERED: INSULIN GLARGINE SOLOSTAR 100 UNITS/ML 3 ML PEN SC SCH (09:00)
--- NOTE | 2021-06-03 09:24 | Cardiology Consultation ---
Date of Consultation June 03, 2021 Assessment & Plan (1) Atrial fibrillation with rapid ventricular response: Impression: 1. New onset paroxysmal Afib RVR now in SR 2. Coronary calcifications on CT 3. HLD 4.Possible Pulmonary hypertension - on CT Main pulmonary artery is dilated measuring up to 3.2 cm in diameter which could be seen in pulmonary hypertension. 5. DMII 6. Obesity Mr. Driscoll presented in new onset Afib. We discussed that his CHADS-Vasc is 1 putting him at a 0.6% risk per year of stroke. Given that he is able to sense when he is in Afib and this appears to be the first time it has happened, possibly exacerbated by a GI virus, we can hold off on initiation of AC for now. His echo showed normal LVF and no valvular abnormalities. He should be discharged on beta blockers. He will need a sleep study as an outpatient. He should additionally have a baby ASA added to his regimen given his coronary calcifications seen on his CT. He is already rosuvastatin with LDL of 80. He should continue to work on decreasing his TG through diet and managing his bsgs. His CT indicated possible pulmonary hypertension with dilated pulmonary artery. Will await echo results. If he does have significant pulmonary htn, it further solidifies that he needs evaluated for sleep apnea/obesity hypoventilation syndrome. As he is back in SR, he can be discharged from a cardiology perspective. He should have close follow up with our clinic History of Present Illness Reason for Consultation: new onset afib Attending Physician: Antione Watt MD History of Present Illness Mr. Driscoll presented to the ED 06/02 after sensing fluttering in his throat and diaphoresis after eating dinner. He did not have any sob or chest pain or edema. No lightheadedness. He has not had anything like this before but does note that during COVID in October he did have a rapid heart rate - EKG from that visit shows ST. He was given diltiazem IV x2 in the ED and converted back to a sinus rhythm. Today he has no symptoms and has been in SR since. He did have a CT of his chest due to abnormality on CXR - moderate coronary calcifications, dilated pulmonary artery possibly indicating pulmonary hypertension. Pmhx: metabolic syndrome, obesity, DM II (A1c 6.5 11/07), Hodgkin lymphoma Dx. 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 Family: mother had DM and afib, father had CAD and valve issues Allergies Allergy/AdvReac Type Severity Reaction Status Date / Time cetirizine Allergy Unknown RASH Verified 06/02/21 20:16 Home Medications Medication Instructions Recorded Confirmed Type omega-3 fatty acids 1,000 mg 1,000 mg PO QAM 03/13/19 06/02/21 History capsule (Fish Oil Concentrate) cholecalciferol (vitamin D3) 125 5,000 units PO QAM #30 cap 04/28/19 06/02/21 History mcg (5,000 unit) capsule cyanocobalamin (vitamin B-12) 1,000 mcg PO QAM tab 04/28/19 06/02/21 History 1,000 mcg tablet Dexcom G6 End User Support Specialist (blood-glucose #1 ea NS 10/03/20 04/22/21 Rx meter,continuous) BD Ultra-Fine Tatyana Pen Needle 32 #200 ea NS 01/30/21 04/22/21 Rx gauge x 5/32" (pen needle, diabetic) Dexcom G6 Sensor (blood-glucose #3 ea NS 03/05/21 04/22/21 Rx sensor) Dexcom G6 Transmitter #1 ea NS 03/05/21 04/22/21 Rx (blood-glucose transmitter) blood sugar diagnostic (Accu-Chek #100 ea 04/22/21 04/22/21 Rx Maral Plus test strp) blood-glucose meter (Accu-Chek ea 04/22/21 04/22/21 History Maral Plus Meter) dulaglutide 3 mg/0.5 mL 3 mg SQ Q7D ml 04/22/21 06/02/21 History subcutaneous pen injector metformin 500 mg tablet 1,000 mg PO BID #360 tab 05/12/21 06/02/21 Rx albuterol sulfate 90 mcg/actuation 1 - 2 puff INHALATION Q4H PRN 06/02/21 History aerosol inhaler insulin aspart U-100 100 unit/mL 60 unit SQ DIRECTED 06/02/21 06/02/21 History (3 mL) subcutaneous pen (Novolog Flexpen U-100 Insulin aspart) insulin degludec 100 unit/mL (3 40 unit SQ QAM 06/02/21 06/02/21 History mL) subcutaneous pen (Tresiba FlexTouch U-100 insulin) rosuvastatin 10 mg tablet (Crestor) 10 mg PO QAM 06/02/21 06/02/21 History aspirin 81 mg tablet,delayed 81 mg PO DAILY #30 tab 06/03/21 Rx release (Aspirin Low Dose) metoprolol succinate 25 mg 25 mg PO QAM #30 tab 06/03/21 Rx tablet,extended release 24 hr Patient History Medical History BMI 40.0-44.9, adult COVID-19 Diabetes mellitus type 2 in obese History of Hodgkin's lymphoma Hyperlipidemia Metabolic disorder Morbid obesity Pneumonia due to COVID-19 virus Sarcoidosis Surgical History History of colonoscopy History of lymph node biopsy History of surgery gallbladder surgery History of umbilical hernia repair Family History Family/Other Myocardial infarction Father Cardiac disorder Sister Anxiety Diabetes Denies family history of Ovarian cancer Prostate cancer Breast cancer Colorectal cancer Social History Smoking Status: Current some day smoker Tobacco Type: Cigarettes Age Started Using Tobacco: 15; Age Quit Using Tobacco: 17; Years Smoked: 2; Cigarettes Per Day: socially; Second Hand Exposure: No; Hx Alcohol Use: Yes Alcohol type: beer Alcohol Intake Frequency: Monthly or Less Hx Substance Use: No Preferred Language: Comoran Communication Ability: Effective Visual Impairment: No Limitations Hearing Ability: Normal marital status: Current Living Situation: Spouse Current Living Situation Comment: with current occupational status: employed 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 Feels Safe at Home: Yes Childhood Exposure to Second-Hand Smoke: Yes Dental Care, Regularly: Yes Physical Activity Frequency: 1-2 Times per Week Seatbelt Use: always Sunscreen Use: Yes Assistive Devices: None Review of Systems Review of Systems: All systems reviewed & are unremarkable except as noted in HPI & below Physical Exam Constitutional: WD/WN, vitals as above Respiratory: normal respiratory effort, lungs clear to auscultation Cardiovascular: RRR, no murmur, no edema Skin: no rashes, warm and dry Neurologic: moves all extremities and awake Psychiatric: A+Ox3, euthymic affect Results & Data ([facility]) Vital Signs (Past 12 Hours) Vital Signs Temp Pulse Pulse Resp BP BP Pulse Ox 06/03/21 07:57 36.9 C 86 12 125/77 06/03/21 07:41 36.9 C 89 18 125/76 96 06/03/21 04:00 36.7 C 84 18 135/83 95 06/03/21 01:21 89 06/03/21 01:15 36.8 C 88 18 126/76 96 06/02/21 23:51 86 109/68 96 06/02/21 23:30 88 17 116/71 95 06/02/21 23:00 93 H 14 111/76 96 06/02/21 22:36 93 H 06/02/21 22:00 96 H 17 113/72 96 06/02/21 21:30 130 H 16 132/79 96
--- NOTE | 2021-06-03 10:09 | XCELERA ---
[id number] [id number]
[2021-06-03] MEDS ORDERED: METOPROLOL SUCC 25MG EXT REL TAB PO SCH (10:15)
--- NOTE | 2021-06-03 13:09 | Discharge Summary ---
Date of Service June 03, 2021 Admission HPI Per Admitting Provider Cain Driscoll is a 46-year-old male with a past history of metabolic syndrome, obesity, DM II (A1c 6.5 11/07), Hodgkin lymphoma Dx. 2000 s/p chemotherapy, Sarcoid, and HLD presenting today with palpitations found to be in atrial fibrillation with rapid ventricular rate. He noted fluttering in his chest on 06/02 along with sweating. He did not have any chest pain or shortness of breath. He has never had anything like this in the past. He has had diarrhea, gas and indigestion over the last 2 days that has been improving. He typically does not drink much water during the day stating that he drinks around 32 oz. of water, 12 of tea and 12 of decaf. coffee. His was sick prior also with diarrhea and has recovered over approx. one day. Of note, he had COVID in September (ED visit 01/19) and the patient reports there was concern for an enlarged heart at that time on imaging (cardiomegaly on CXR). Lloyd Starks would like to be updated with any changes: [phone] ED course: - Diltiazem IV 20mg X2 & converted to NSR Principal Diagnosis New onset atrial fibrillation Discharge Exam Constitutional WD/WN, vitals as above Respiratory normal respiratory effort, lungs clear to auscultation Cardiovascular Rate/Rhythm: regular rate and regular rhythm Heart Sounds: normal S1 (quiet HS) and normal S2; no murmur Discharge Data Allergies Allergy/AdvReac Type Severity Reaction Status Date / Time cetirizine Allergy Unknown RASH Verified 06/02/21 20:16 Consultations 06/02/21 21:16 ED Decision to Admit Stat 06/03/21 01:04 Consult Cardiology Routine Ordered Studies 06/02/21 20:38 CT angio chest dissec wo/w con Urgent Hospital Course (1) Atrial fibrillation with rapid ventricular response: Cain Driscoll is a 46 year old male observed at [facility] from June 02 - 2020 due to sweating and palpitations. CT angiogram ruled out dissection. He was diagnosed with new onset atrial fibrillation and symptoms resolved with conversation to normal sinus rhythm in the emergency room with intravenous diltiazem. He denies alcohol consumption, TSH and echocardiogram were normal. [id number] - 1. He was reviwed by cardiology and started on low dose metoprolol succinate. You were reviewed by cardiology and recommended start low dose metoprolol for future rate control. You are determined to be a low risk of stroke therefore no anticoagulation is recommended at this time but due to your diabetes recommend starting 81mg aspirin for general cardiovascular risk reduction. Discharge Plan Discharge Items Patient Disposition: Home - Self-Care Reason For Visit: NEW ONSET A-FIB Discharge Diagnosis: New onset atrial fibrillation Activity: Resume your previous activity Non-emergency contact: Burlapper Call non-emergency contact if: you have any medication questions and your symptoms worsen Follow-up/Referrals: Charlie Peterson III, CRNP [Primary Care Provider] - Ciro Field DO [Physician] - (to be arranged by cardiology) Diet: Carb Consistent or DM2 and Heart Healthy Addtl Attending Provider Instructions: You were observed at [facility] from June 02 - 2020 due to sweating and palpitations. You were diagnosed with new onset atrial fibrillation. You converted to normal sinus rhythm with rate controlling medications in the emergency room. Thyroid function test and echocardiogram were normal. You were reviewed by cardiology and recommended start low dose metoprolol for future rate control. You are determined to be a low risk of stroke therefore no anticoagulation is recommended at this time but due to your diabetes recommend starting 81mg aspirin for general cardiovascular risk reduction. Pending Studies at Discharge: No Stand-Alone Forms: [facility], Smoking Cessation Medications and DC Order Prescriptions: New metoprolol succinate 25 mg Tablet Extended Release 24 Hr 25 mg PO QAM Qty: 30 RF: 0 aspirin [Aspirin Low Dose] 81 mg tablet,delayed release (DR/EC) 81 mg PO DAILY Qty: 30 RF: 0 Continued (DME) Dexcom G6 Helper/Driver Misc See Rx Instructions .ROUTE .MEDSUPPLY Qty: 1 RF: 0 (DME) pen needle, diabetic [BD Ultra-Fine Tatyana Pen Needle] 32 gauge x 5/32" needle See Rx Instructions .ROUTE .MEDSUPPLY Qty: 200 RF: 3 (DME) Dexcom G6 Sensor Device See Rx Instructions .ROUTE .MEDSUPPLY Qty: 3 RF: 11 (DME) Dexcom G6 Transmitter Device See Rx Instructions .ROUTE .MEDSUPPLY Qty: 1 RF: 3 metformin 500 mg tablet 1,000 mg PO BID Qty: 360 RF: 1 omega-3 fatty acids [Fish Oil Concentrate] 1,000 mg capsule 1,000 mg PO QAM RF: 0 cholecalciferol (vitamin D3) 5,000 unit capsule 5,000 units PO QAM Qty: 30 RF: 0 cyanocobalamin (vitamin B-12) 1,000 mcg tablet 1,000 mcg PO QAM RF: 0 dulaglutide 3 mg/0.5 mL pen injector 3 mg SQ Q7D RF: 0 (DME) Accu-Chek Maral Plus test strp Strip See Rx Instructions .ROUTE .MEDSUPPLY Qty: 100 RF: 1 (DME) blood-glucose meter [Accu-Chek Maral Plus Meter] Misc See Rx Instructions .ROUTE .MEDSUPPLY RF: 0 albuterol sulfate 90 mcg/actuation HFA aerosol inhaler 1 - 2 puff inhalation Q4H PRN (Reason: shortness of breath or wheezing) RF: 0 insulin aspart U-100 [Novolog Flexpen U-100 Insulin] 100 unit/mL (3 mL) insulin pen 60 unit SQ DIRECTED RF: 0 rosuvastatin [Crestor] 10 mg tablet 10 mg PO QAM RF: 0 Tresiba FlexTouch U-100 100 unit/mL (3 mL) insulin pen 40 unit SQ QAM RF: 0 Discharge Orders: Discharge Order (Routine); Ordered 06/03/21 Ordered By: Antione Sr/Other Patient Handouts: A1C, Managing Type 2 Diabetes, Discharge Instructions for Atrial ... Admission Data Admit Date/Time: 06/02/21 22:09 Attending Provider: Antione Watt Admit Provider: Dalton Muñoz Primary Care Provider: Charlie Peterson III Other Providers: Silverio Parekh ; Ciro Field Coding Diagnoses Atrial fibrillation with rapid ventricular response I48.91
--- NOTE | 2021-06-03 16:20 | Electrocardiogram Report ---
Test Reason : Blood Pressure : / mmHG Vent. Rate : 157 BPM Atrial Rate : 147 BPM P-R Int : 000 ms QRS Dur : 096 ms QT Int : 276 ms P-R-T Axes : 000 -18 005 degrees QTc Int : 446 ms Atrial fibrillation with rapid ventricular response Abnormal ECG When compared with ECG of 25-OCT-2020 14:21, Significant changes have occurred Confirmed by Sukhdev Giraldo ([id number]) on 06/03/2021 4:20:37 PM Referred By: REFERRED SELF Confirmed By:Sukhdev Giraldo
--- NOTE | 2021-06-03 16:22 | Electrocardiogram Report ---
Test Reason : Blood Pressure : / mmHG Vent. Rate : 095 BPM Atrial Rate : 095 BPM P-R Int : 174 ms QRS Dur : 096 ms QT Int : 384 ms P-R-T Axes : 035 -23 -02 degrees QTc Int : 482 ms Normal sinus rhythm Poor R wave progression, consider anterior MO vs. lead placement vs. LVH Abnormal ECG When compared with ECG of 02-JUN-2021 19:25, (unconfirmed) Sinus rhythm has replaced Atrial fibrillation Vent. rate has decreased BY 62 BPM Confirmed by Sukhdev Giraldo ([id number]) on 06/03/2021 4:21:51 PM Referred By: REFERRED SELF Confirmed By:Sukhdev Giraldo
--- NOTE | 2021-06-03 19:32 | Billing Data ---
Date of Service June 03, 2021 Coding Level of Care Code INT OBSERVATION CARE 70M LVL 3
== END 2021-06-03 13:44 | disposition home or self-care (01) ==
LOC: 2W 19:09 → ED 19:09 → SUATTDRO 22:09 → 2W 06-03 00:01